=== PATIENT | female | born 1965 | race Caucasian/White ===

== ENCOUNTER 2021-01-03 12:25 | Outpatient (CLI) | payer BC | END 2021-01-03 12:26 | disposition home or self-care (01) | LOC: CSHULT 12:25 | PROVIDERS: ATTEND Otolaryngology Plastic Surgery within the Head & Neck | DX: E04.1 Nontoxic single thyroid nodule (principal); E04.2 Nontoxic multinodular goiter; Z90.09 Acquired absence of other part of head and neck | CPT/HCPCS: 76536 ==

== ENCOUNTER 2021-08-08 15:24 | Outpatient (CLI) | payer BC | END 2021-08-08 15:25 | disposition home or self-care (01) | LOC: CSHMAMMO 15:24 | PROVIDERS: ATTEND Family Medicine | DX: Z12.31 Encounter for screening mammogram for malignant neoplasm of breast (principal) | CPT/HCPCS: 77063; 77067 ==

== ENCOUNTER 2022-08-16 10:09 | Outpatient (CLI) | payer BC | END 2022-08-16 10:10 | disposition home or self-care (01) | LOC: CSHMAMMO 10:09 | PROVIDERS: ATTEND Family Medicine | DX: Z12.31 Encounter for screening mammogram for malignant neoplasm of breast (principal) | CPT/HCPCS: 77063; 77067 ==

== ENCOUNTER 2023-10-24 14:03 | Outpatient (CLI) | payer BC | END 2023-10-24 14:04 | disposition home or self-care (01) | LOC: CSHMAMMO 14:03 | PROVIDERS: ATTEND Family Medicine | DX: Z13.820 Encounter for screening for osteoporosis (principal) | CPT/HCPCS: 77080 ==

== ENCOUNTER 2024-09-26 11:54 | Outpatient (CLI) | payer BC | END 2024-09-26 11:55 | disposition home or self-care (01) | LOC: CSHMAMMO 11:54 | PROVIDERS: ATTEND Physician Assistant | DX: Z12.31 Encounter for screening mammogram for malignant neoplasm of breast (principal) | CPT/HCPCS: 77063; 77067 ==

== ENCOUNTER 2025-04-08 13:16 | Outpatient (CLI) | payer BC | END 2025-04-08 13:17 | disposition home or self-care (01) | LOC: CSHULT 13:16 | PROVIDERS: ATTEND Otolaryngology Plastic Surgery within the Head & Neck | DX: E04.2 Nontoxic multinodular goiter (principal) | CPT/HCPCS: 76536 ==